=== PATIENT | female | born 1970 | race Caucasian/White ===

== ENCOUNTER 2019-01-20 10:47 | Outpatient (CLI) | payer OTHER ==
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
== END 2019-01-20 10:48 | disposition home or self-care (01) ==
LOC: SCSCT 10:47
PROVIDERS: ATTEND Podiatrist Foot & Ankle Surgery
DX: M20.22 Hallux rigidus, left foot (principal); M21.6X2 Other acquired deformities of left foot; M25.572 Pain in left ankle and joints of left foot; Z98.1 Arthrodesis status; Z89.412 Acquired absence of left great toe